=== PATIENT | male | born 1980 | race Caucasian/White ===

== ENCOUNTER 2021-01-15 20:06 | Emergency (ER) | payer OTHER ==
[~2021-01-15] VITALS: Ht 185.4 cm; Wt 99.8 kg
[2021-01-15 20:09] VITALS: BP 117/79
--- NOTE | 2021-01-16 09:44 | EKG ---
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
== END 2021-01-15 20:31 | disposition home or self-care (01) ==
LOC: M.ERS 20:06
DX: R07.89 Other chest pain (principal)

== ENCOUNTER 2021-08-29 13:20 | Emergency (ER) | payer OTHER ==
[~2021-08-29] VITALS: Ht 185.4 cm; Wt 99.8 kg
[2021-08-29 13:35] LABS: ABSOLUTE BASOPHILS 0.1 thou/uL (0.0-0.2); ABSOLUTE EOSINOPHILS 0.1 thou/uL (0.0-0.7); ABSOLUTE LYMPHOCYTES 1.8 thou/uL (0.8-5.3); ABSOLUTE MONOCYTES 0.5 thou/uL (0.0-1.2); ABSOLUTE NEUTROPHILS 7.7 thou/uL (1.6-8.1); BASOPHILS 0.5 %; EOSINOPHILS 1.1 %; HEMOGLOBIN 15.9 gm/dL (14.0-18.0); LYMPHOCYTES 17.5 %; MCH 30.9 pg (26.0-34.0); MCHC 33.8 g/dL (28.0-37.0); MCV 91.6 fL (80.0-100.0); MPV 7.9 fl. (7.2-11.1); NUCLEATED RBCS 0 /100WBC; PLATELET COUNT* 238 thou/uL (150-400); POLYS 75.9 %; RBC 5.14 mil/uL (4.50-6.00); RDW-CV 13.8 % (10.5-14.5); WBC 10.2 thou/uL (4.0-11.0)
[2021-08-29 13:44] LABS: CALCIUM 8.4 mg/dL (8.5-10.1); POTASSIUM 4.7 mmol/L (3.5-5.1)
[2021-08-29 13:59] LABS: ALBUMIN 3.8 g/dL (3.4-5.0); CK-MB MASS 0.8 ng/mL (<0.5-3.6); MAGNESIUM 1.8 mg/dL (1.8-2.4); TOTAL BILIRUBIN 0.6 mg/dL (<0.1-1.0); TOTAL PROTEIN 7.2 g/dL (6.4-8.2)
[2021-08-29 14:13] VITALS: BP 128/69
--- NOTE | 2021-08-30 12:49 | EKG ---
[place] [address] ELECTROCARDIOGRAM REPORT Name: JAIME ANDERSON Room: 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1980 Requested By: Cesar Martinez Order Number: [id number] MD: Rome Muñoz Measurements Intervals [place] Rate: 58 P: 42 MN: 148 QRS: 44 QRSD: 101 T: 42 QT: 424 QTc: 417 Interpretive Statements Sinus rhythm ST elev, probable normal early repol pattern Baseline wander in lead(s) V1 Compared to ECG 01/15/2021 20:18:04 ST (T wave) deviation now present Sinus tachycardia no longer present Electronically Signed On 08-30-2021 12:49:07 CDT by Rome Muñoz [email or web address] <ELECTRONICALLY SIGNED> By: Rome Muñoz MD, FACC 08/30/21 1249 1318 1318 Rome Muñoz MD, FAC /EPI
== END 2021-08-29 14:14 ==
LOC: M.ERS 13:20
PROVIDERS: Family Medicine
DX: R07.89 Other chest pain (principal); R06.02 Shortness of breath